=== PATIENT | female | born 1970 | race Caucasian/White ===

== ENCOUNTER 2019-03-08 19:08 | Emergency (ER) | payer OTHER ==
[2019-03-08 19:25] VITALS: TEMP 98.1; BMI 29.2
[2019-03-08 20:08] LABS: INR 0.99 (0.82-1.09); PROTHROMBIN TIME (PATIENT) 11.1 SEC (10.2-13.0)
[2019-03-08 20:13] LABS: ALBUMIN 3.8 g/dl (3.4-5.0); BILIRUBIN,TOTAL 0.3 mg/dl (0.2-1); CALCIUM 8.7 mg/dl (8.5-10); CREATININE 0.7 mg/dl (0.55-1.3); TOT PROT 6.6 g/dl (6.4-8.2)
[2019-03-08 20:26] LABS: BASO % 0.4 % (0-2.0); EOS % 1.3 % (0-4.5); HEMOGLOBIN 12.3 GM/dl (10.7-15.3); LYMPH % 40.6 % (8-40); MCH 33.1 pg (25.7-33.7); MCHC 34.1 g/dl (32.0-36.0); MEAN PLT VOLUME 8.8 fl (7.5-11.1); MONO % 6.1 % (3.8-10.2); NEUT % 51.6 % (42.8-82.8); PLATELET COUNT 274 K/MM3 (134-434); RBC 3.71 M/mm3 (3.60-5.2); RDW 12.7 % (11.6-15.6); WHITE BLOOD COUNT 7.6 K/mm3 (4.0-10.8)
[2019-03-08] MEDS ORDERED: KETOROLAC TROMETHAMINE 30 MG/1 ML VIAL IVPUSH ONE (21:09)
[2019-03-08] MEDS ORDERED: KETOROLAC TROMETHAMINE 30 MG/1 ML VIAL ONE (21:10)
[2019-03-08] MEDS ORDERED: HYOSCYAMINE SULFATE 0.125 MG *ODT PO ONE (21:46)
[2019-03-08] MEDS ORDERED: HYOSCYAMINE SULFATE 0.125 MG *ODT ONE (21:48)
[2019-03-08 23:15] VITALS: BP 145/84; PULSE 63
--- NOTE | 2019-03-09 00:15 | PDOC ---
Documentation entered by Tricia Sousa SCRIBE, acting as scribe for Alena Yusuf MD. Alena Yusuf MD: This documentation has been prepared by the Lars weaver Brenda, SCRIBE, under my direction and personally reviewed by me in its entirety. I confirm that the documentation accurately reflects all work, treatment, procedures, and medical decision making performed by me. History of Present Illness - General Chief Complaint: Chest Pain Stated Complaint: CHEST PAIN History Source: Patient Exam Limitations: No Limitations - History of Present Illness Initial Comments: 03/08/19 20:34 The patient is a 48 year old female, with a significant PMH of fibromyalgia ( with knots to skull, hind neck, and pelvis), currently taking cymbalta and PMH of IBS, who presents to the emergency department with chest heaviness for 4 hours. Patient reports that around 4:30pm this afternoon, while laying down patient felt sudden chest pressure/heaviness, which she describes as if an elephant was sitting on her chest, accompanied by shortness of breath. She reports thinking it would go away by dinner time, but it persisted constantly and was aggravated by exhalation, prompting her arrival to the ED. She states that the pressure is worse while sitting up.Patient states having panic attacks before, but notes that this feels different. The patient denies recent exertion, recent trips and being sedentary. Denies headache and dizziness. Denies fever, chills, nausea, vomiting, diarrhea and constipation. Denies any urinary symptoms. Allergies: Clindamycin Past surgical history: None reported Social history: DHistory of tobacco use 20 years ago. Social alcohol use Denies illicit drug use. Family History: DM, HTN, Father has blood clots in the legs, paternal grandfather had MN before 50 years of age. PCP: Suzi Cagle Past History - Past Medical History Allergies/Adverse Reactions: Allergies Allergy/AdvReac Type Severity Reaction Status Date / Time clindamycin [From Cleocin] Allergy Verified 03/08/19 19:18 Home Medications: Ambulatory Orders Duloxetine HCl [Cymbalta] 60 mg PO DAILY 03/08/19 Hyoscyamine Odt [Levsin Odt -] 0.125 mg SL BID PRN #10 tab.rapdis 03/08/19 Ibuprofen 800 mg PO ONCE 03/08/19 Review of Systems - Review of Systems Able to Perform ROS?: Yes Comments:: 03/08/19 20:35 GENERAL/CONSTITUTIONAL: No fever or chills. No weakness. HEAD, EYES, EARS, NOSE AND THROAT: No change in vision. No ear pain or discharge. No sore throat. CARDIOVASCULAR: (+) Chest pressure/pain. (+) Shortness of breath. RESPIRATORY: No cough, wheezing, or hemoptysis. GASTROINTESTINAL: No nausea, vomiting, diarrhea or constipation. GENITOURINARY: No dysuria, frequency, or change in urination. MUSCULOSKELETAL: No joint or muscle swelling or pain. No neck or back pain. SKIN: No rash NEUROLOGIC: No headache, vertigo, loss of consciousness, or change in strength/ sensation. ENDOCRINE: No increased thirst. No abnormal weight change. HEMATOLOGIC/LYMPHATIC: No anemia, easy bleeding, or history of blood clots. ALLERGIC/IMMUNOLOGIC: No hives or skin allergy. *Physical Exam - Vital Signs Last Vital Signs Temp Pulse Resp BP Pulse Ox 98.1 F 74 16 140/88 99 03/08/19 19:08 03/08/19 20:51 03/08/19 20:51 03/08/19 20:51 03/08/19 20:51 - Physical Exam Comments: 03/08/19 20:35 GENERAL: Awake, alert, and fully oriented, in no acute distress HEAD: No signs of trauma EYES: PERRLA, EOMI, sclera anicteric, conjunctiva clear ENT: Auricles normal inspection, hearing grossly normal, nares patent, oropharynx clear without exudates. Moist mucosa NECK: Normal ROM, supple, no lymphadenopathy, JVD, or masses LUNGS: Breath sounds equal, clear to auscultation bilaterally. No wheezes, and no crackles HEART: Regular rate and rhythm, normal S1 and S2, no murmurs, rubs or gallops ABDOMEN: Soft, nontender, normoactive bowel sounds. No guarding, no rebound. No masses EXTREMITIES: Normal range of motion, no edema. No clubbing or cyanosis. No cords, erythema, or tenderness NEUROLOGICAL: Cranial nerves II through XII grossly intact. Normal speech, normal gait SKIN: Warm, Dry, normal turgor, no rashes or lesions noted. ED Treatment Course - LABORATORY CBC & Chemistry Diagram: 03/08/19 19:30 03/08/19 19:30 - ADDITIONAL ORDERS Additional order review: Laboratory Results 03/08/19 03/08/19 03/08/19 19:30 19:30 19:30 PT with INR 11.1 INR 0.99 PTT (Actin FS) Sodium 139 Potassium 4.0 Chloride 106 Carbon Dioxide 27 Anion Gap 6 L BUN 9.0 Creatinine 0.7 Est GFR (CKD-EPI)AfAm 117.91 Est GFR (CKD-EPI)NonAf 101.74 Random Glucose 116 H Calcium 8.7 Total Bilirubin 0.3 AST 25 ALT 29 Alkaline Phosphatase 32 L Creatine Kinase 70 Troponin I < 0.03 Total Protein 6.6 Albumin 3.8 03/08/19 19:30 PT with INR INR PTT (Actin FS) 28.1 Sodium Potassium Chloride Carbon Dioxide Anion Gap BUN Creatinine Est GFR (CKD-EPI)AfAm Est GFR (CKD-EPI)NonAf Random Glucose Calcium Total Bilirubin AST ALT Alkaline Phosphatase Creatine Kinase Troponin I Total Protein Albumin 03/08/19 19:30 RBC 3.71 MCV 97.0 H MCHC 34.1 RDW 12.7 MPV 8.8 Neutrophils % 51.6 Lymphocytes % 40.6 H Monocytes % 6.1 Eosinophils % 1.3 Basophils % 0.4 - Medications Given in the ED: ED Medications Discontinued Medications Generic Name Dose Route Start Last Admin Trade Name Freq PRN Reason Stop Dose Admin Hyoscyamine Sulfate 0.125 mg 03/08/19 21:46 03/08/19 21:49 Levsin Odt - PO 03/08/19 21:47 0.125 mg ONCE ONE Administration Ketorolac Tromethamine 30 mg 03/08/19 21:09 03/08/19 21:13 Toradol Injection - IVPUSH 03/08/19 21:10 30 mg ONCE ONE Administration Medical Decision Making - Medical Decision Making As noted above, this 48-year-old woman with a history of fibromyalgia and IBS presents with few hours of chest pressure. Patient was at rest, lying down at onset of symptoms. No other associated symptoms noted. No previous history of this type of discomfort. Exam as noted. Twelve-lead electrocardiogram reveals normal sinus rhythm at 74 bpm; waveforms, axis and intervals are all normal. No evidence of acute ST or T wave abnormalities. No evidence of acute cardiac arrhythmia. Patient is 1 risk factor for coronary artery disease (family history of early MN ). CBC/Chemistry profile/troponin evaluated: All normal without elevation of the troponin. Because of risk factor for coronary artery disease and persistence of chest pressure, second troponin evaluation planned in 4 hours. Meanwhile, 30 mg Toradol IV administered: No change in substernal chest pressure. Because of the patient's history of of IBS, Levsin ODT 0.125 mg given : Patient had complete relief of her substernal chest pressure. Second troponin at 4 hours after first, is not elevated Clinical presentation most consistent with atypical chest pain, perhaps related to smooth muscle spasm of esophagus (although patient has no history of GERD, she was lying down at the onset of the chest discomfort suggesting reflux). Prescription sent to her pharmacy for Levsin ODT 0.125 mg to be used up to twice a day as needed for chest or abdominal discomfort. Patient should plan to follow-up with her PMD within the next few days. If she has any persistent discomfort or experiences shortness of breath/palpitations/ diaphoresis or nausea, she should return to the emergency room Discharge - Discharge Information Problems reviewed: Yes Clinical Impression/Diagnosis: Atypical chest pain Condition: Stable Disposition: HOME - Additional Discharge Information Prescriptions: Hyoscyamine Odt [Levsin Odt -] 0.125 mg SL BID PRN #10 tab.rapdis PRN Reason: Pain - Follow up/Referral Referrals: Suzi Cagle MD [Primary Care Provider] - - Patient Discharge Instructions Patient Printed Discharge Instructions: DI for Atypical Chest Pain Additional Instructions: Rest; avoid strenuous activity over the next few days Elevate head on extra pillow at night Levsin ODT 0.125 mg up to twice a day as needed for pain Follow-up with your doctor within the next 2 to 3 days as discussed Return to ER if you have persistent pain or experience shortness of breath, vomiting or fever - Post Discharge Activity
--- NOTE | 2019-03-11 14:47 | EKG ---
Test Reason : Blood Pressure : / mmHG Vent. Rate : 074 BPM Atrial Rate : 074 BPM P-R Int : 162 ms QRS Dur : 086 ms QT Int : 396 ms P-R-T Axes : 047 057 055 degrees QTc Int : 439 ms NORMAL SINUS RHYTHM NORMAL ECG NO PREVIOUS ECGS AVAILABLE Confirmed by DAPHNEY ELIZABETH, CLIFFORD ([id number]) on 03/11/2019 2:47:23 PM Referred By: DR JOHNSTON Confirmed By:CLIFFORD SHELLEY MD
== END 2019-03-08 23:24 | disposition home or self-care (01) ==
LOC: FER 19:08
PROC: 3E0333Z Introduction of Anti-inflammatory into Peripheral Vein, Percutaneous Approach (ICD-10-PCS; principal; 2019-03-08)
DX: R07.89 Other chest pain (principal); Z88.8 Allergy status to other drugs, medicaments and biological substances; M79.7 Fibromyalgia; K58.9 Irritable bowel syndrome, unspecified
CPT/HCPCS: 36415; 80053; 82550; 84484; 85025; 85610; 85730; 93005; 99284-25

== ENCOUNTER 2022-08-28 14:12 | Emergency (ER) | payer BC, OTHER ==
[2022-08-28 14:30] VITALS: BP 120/79; PULSE 85; RESP 16; TEMP 98.6; BMI 31.8
[2022-08-28 15:31] LABS: HEMATOCRIT 39.1 % (32.4-45.2); HEMOGLOBIN 13.4 G/dL (10.7-15.3); MCH 33.5 pg (25.7-33.7); MCHC 34.3 g/dl (32.0-36.0); MEAN CELL VOLUME 97.5 fl (80-96); MEAN PLT VOLUME 8.2 fl (7.5-11.1); PLATELET COUNT 261.1 10^3/uL (134-434); RBC 4.01 10^6/uL (3.60-5.2); RDW 13.1 % (11.6-15.6); WHITE BLOOD COUNT 12.1 10^3/uL (4.0-10.8)
[2022-08-28 15:43] LABS: ALBUMIN 3.9 g/dl (3.4-5.0); BILIRUBIN,TOTAL 0.5 mg/dl (0.2-1); CALCIUM 8.9 mg/dl (8.5-10); CREATININE 0.8 mg/dl (0.55-1.3); POTASSIUM 3.6 mmol/L (3.5-5.1); TOT PROT 6.9 g/dl (6.4-8.2)
[2022-08-28 15:55] LABS: EPITHELIAL CELLS MANY /hpf
[2022-08-28] MEDS ORDERED: MAG HYDROX/AL HYDROX/SIMETH 30 ML UNIT-DOSE CUP PO ONE (17:06)
[2022-08-28] MEDS ORDERED: FAMOTIDINE 20 MG TABLET PO ONE (17:07)
[2022-08-28] MEDS ORDERED: MAG HYDROX/AL HYDROX/SIMETH 30 ML UNIT-DOSE CUP ONE (17:09)
[2022-08-28] MEDS ORDERED: FAMOTIDINE 20 MG TABLET ONE (17:09)
== END 2022-08-28 17:50 | disposition home or self-care (01) ==
LOC: FER 14:12
DX: R10.84 Generalized abdominal pain (principal)
CPT/HCPCS: 36415; 74176-TC; 76700-TC; 80053; 81003; 81015; 83690; 84703; 85027; 87086; 99285-25